=== PATIENT | male | born 1960 | race Caucasian/White ===

== ENCOUNTER 2018-02-11 07:19 | Emergency (ER) | payer OTHER, MEDICAID ==
[2018-02-11 07:26] VITALS: BP 149/107
[2018-02-11] MEDS ORDERED: LIDOCAINE 2% JELLY 5 ML TUBE ONE (07:42)
--- NOTE | 2018-02-11 07:44 | EDPHY ---
H & P Stated Complaint: 2 months overdue for indwelling cath change Time Seen by Provider: 02/11/18 07:28 HPI/ROS: CHIEF COMPLAINT: Here for suprapubic catheter change HISTORY OF PRESENT ILLNESS: 57-year-old male presents for a suprapubic catheter change. 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 The catheter was changed 2 months ago by his home health care nurse and it was fairly traumatic. For this reason, he decided to come to the emergency department for catheter change. The catheter is working well. No abdominal pain, recent illness or fever. 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 - Social History Smoking Status: Current every day smoker - Physical Exam Exam: General Appearance: Alert, pleasant Eyes: Pupils equal and round ENT, Mouth: Mucous membranes moist Neck: Normal inspection Respiratory: Normal respiratory rate Cardiovascular: Regular rate and rhythm Gastrointestinal: Abdomen is soft and nontender, catheter site is clean, without drainage or erythema Neurological: A&O, nonfocal, normal gait Skin: Warm and dry Extremities: Normal inspection Psychiatric: Mood and affect normal Constitutional: Initial Vital Signs Temperature (C) 37.0 C 02/11/18 07:23 Heart Rate 67 02/11/18 07:23 Respiratory Rate 16 02/11/18 07:23 Blood Pressure 149/107 H 02/11/18 07:23 O2 Sat (%) 97 02/11/18 07:23 O2 Delivery Mode Room Air Allergies/Adverse Reactions: amoxicillin [Amoxicillin] Allergy (Intermediate, Verified 07/12/16 10:13) RASH, THROAT TIGHTNESS ertapenem sodium [From Invanz] Allergy (Verified 07/12/16 10:13) Home Medications: Medication Instructions Recorded NK [No Known Home Meds] 07/12/16 Medical Decision Making ED Course/Re-evaluation: The suprapubic catheter was easily changed by the ED RN. Departure - Departure Disposition: Home, Routine, Self-Care Clinical Impression: Encounter for suprapubic catheter care Condition: Good Instructions: How to Care for Your Suprapubic Catheter (ED) Additional Instructions: Return with any concerns. Referrals: BLESSING VILLANUEVA [Other] - As per Instructions
== END 2018-02-11 08:19 | disposition home or self-care (01) ==
DX: Z46.6 Encounter for fitting and adjustment of urinary device (principal); F17.200 Nicotine dependence, unspecified, uncomplicated

== ENCOUNTER 2018-07-08 09:25 | Emergency (ER) | payer OTHER, MEDICAID ==
--- NOTE | 2018-07-08 09:41 | EDPHY ---
General Time Seen by Provider: 07/08/18 09:35 Narrative: CHIEF COMPLAINT: Need my suprapubic catheter exchange HISTORY OF PRESENT ILLNESS: Patient presents by private vehicle with complaints of needing his suprapubic catheter exchange. He has had a suprapubic urinary catheter in place for nearly 6 years due to complications from infection of the bladder. He states that he has typically had the catheter exchange every 2 months in the office or by home health nurse. Starting on Monday, when he was due to having exchange, he states that the catheter has become clogged. He has been passing some sediment through this. He knows that is clogged because this has happened many times. He has been passing some urine through the urethra and has no severe pain. He has some minimal discomfort from the catheter is asking that we exchanged. No fever. No flank pain. No nausea vomiting. No hematuria. No other associated complaints or modifying factors. REVIEW OF SYSTEMS: 10 systems were reviewed and negative with the exception of the elements mentioned in the history of present illness. PCP: Dr. Tish Colon SPECIALISTS: Dr. Abraahm Tai PAST MEDICAL HISTORY: [age] gangrene, hypertension PAST SURGICAL HISTORY: Suprapubic catheter placement 6 years ago SOCIAL HISTORY: Occasional smoker. Lives independently. Currently on disability FAMILY HISTORY: Noncontributory. EXAMINATION: Vitals: Triage VS reviewed General Appearance: Alert, no distress. Well appearing. Head: normocephalic, atraumatic Eyes: Pupils equal and round, no conjunctival pallor or injection Gastrointestinal: Abdomen is soft and nontender. There is a suprapubic catheter in place with no surrounding erythema or cellulitis. No skin breakdown. Skin: Warm and dry, no rash. No signs of infection. No pre-catheter skin changes. Extremities: Nontender, no pedal edema Psychiatric: Mood and affect normal DIFFERENTIAL DIAGNOSES: Including but not limited to catheter dysfunction, bladder dysfunction MDM: 9:35 a.m. Visit requesting exchange of his suprapubic catheter. The patient has had AC pubic catheter in place for nearly 6 years with well-established tract. The current catheter in place for 2 months. He is due for changes 2 months. He brought the catheter with him here. He has no abdominal pain, fever flank pain. He is passing urine through his urethra. His only request is that we exchanged the catheter. He is in no acute distress. He is resting comfortably otherwise. 10:30 a.m. Catheter has been exchanged urinalysis is pending. I have re-evaluated him. He feels much better. He is requesting that we write him a prescription for ciprofloxacin, as he feels that this is an early infection. I have written this prescription at his request with a pending urinalysis. He states that he has not been on antibiotics for nearly 9 months and ciprofloxacin is the drug of choice by his urologist. I have also ordered a urine culture. He is comfortable with this plan and discharged home in stable condition. ED precautions discussed. SUPERVISION: This patient was independently evaluated without direct involvement of or examination by the attending physician. CONSULTATION: None. Urology follow-up - History Smoking Status: Current every day smoker - Objective Vital Signs: Initial Vital Signs Temperature (C) 98.2 F 07/08/18 09:26 Heart Rate 76 07/08/18 09:26 Respiratory Rate 18 07/08/18 09:26 Blood Pressure 154/84 H 07/08/18 09:26 O2 Sat (%) 96 07/08/18 09:26 O2 Delivery Mode Room Air Allergies/Adverse Reactions: amoxicillin [Amoxicillin] Allergy (Intermediate, Verified 07/08/18 09:26) RASH, THROAT TIGHTNESS ertapenem sodium [From Invanz] Allergy (Intermediate, Verified 07/08/18 09:29) Home Medications: Medication Instructions Recorded Ciprofloxacin [Cipro] 500 mg PO BID #20 tab 07/08/18 Microbiology Results: MICROBIOLOGY 07/08/18 10:32 Urine,Suprapubic - Other Urine Culture - Preliminary Gram Neg Vikram Lactose [employer] Sander Proteus Species Medications Given: Discontinued Medications Lidocaine (Uroject Lidocaine 2% Jelly) 20 ml UR EDNOW ONE Stop: 07/08/18 09:55 Last Admin: 07/08/18 09:56 Dose: 20 ml Departure - Departure Disposition: Home, Routine, Self-Care Clinical Impression: Suprapubic catheter dysfunction Qualifiers: Encounter type: initial encounter Qualified Code(s): T83.010A - Breakdown ( mechanical) of cystostomy catheter, initial encounter UTI (urinary tract infection) Qualifiers: Urinary tract infection type: site unspecified Hematuria presence: with hematuria Qualified Code(s): N39.0 - Urinary tract infection, site not specified ; R31.9 - Hematuria, unspecified; R31.9 - Hematuria, unspecified Condition: Good Instructions: How to Care for Your Suprapubic Catheter (ED) Referrals: ERMELINDA HUANG [Other] - As per Instructions London Rosario MD [Medical Doctor] - As per Instructions Prescriptions: Ciprofloxacin [Cipro] 500 mg PO BID #20 tab
[2018-07-08] MEDS ORDERED: LIDOCAINE 2% JELLY 20 ML (UROJECT) ONE (09:54)
[2018-07-08] MEDS ORDERED: LIDOCAINE 2% JELLY 20 ML (UROJECT) UR ONE (09:54)
[2018-07-08 10:57] VITALS: BP 139/71
== END 2018-07-08 10:59 | disposition home or self-care (01) ==
PROC: 0T2BX0Z Change Drainage Device in Bladder, External Approach (ICD-10-PCS; principal; 2018-07-08)
DX: T83.010A Breakdown (mechanical) of cystostomy catheter, initial encounter (principal); N39.0 Urinary tract infection, site not specified; I10 Essential (primary) hypertension; F17.200 Nicotine dependence, unspecified, uncomplicated

== ENCOUNTER 2018-11-18 14:04 | Emergency (ER) | payer OTHER, MEDICAID ==
--- NOTE | 2018-11-18 16:11 | EDPHY ---
H & P Time Seen by Provider: 11/18/18 15:51 HPI/ROS: HPI History of suprapubic catheter. Concerned about infection. 58-year-old male by private vehicle. This patient has a history of 48 gangrene and associated surgery and placement of a suprapubic catheter 7 years ago. He reports that he has been living down on the [facility] for the last year taking care of his elderly in loss. He reports that he has had limited access to healthcare in this area. He reports that over the last year he has had multiple urinary tract infections associated with his suprapubic catheter. He reports that he has had it changed out every 2-3 months and has been on at least several different types of antibiotics. He reports most recently has been on ciprofloxacin and just finished a 2 week course several days ago. He presents to the emergency department complaining of foul-smelling urine and stating that he thinks he may be infected again. His urologist's here in [place] are Dr. Bacon and Tarik Bailon. He has not seen them yet. ROS: Constitutional: No fever, no chills. As above. Eyes: No discharge. No changes in vision. ENT: No sore throat. No nasal congestion or rhinorrhea. Respiratory: No cough. No shortness of breath. Cardiac: No chest pain, no palpitations. Gastrointestinal: No abdominal pain, no vomiting, no diarrhea. Genitourinary: No hematuria. No dysuria or increased frequency with urination. As above. Musculoskeletal: No back pain. No neck pain. No myalgias or arthralgias. Skin: No rashes. Neurological: No headache. No focal weakness or altered sensation. Past medical history: As above. Hypertension untreated. Social history: Currently here by himself. Nonsmoker. No alcohol. As above. Physical Exam: General Appearance: Alert, no distress. This patient is responding to questions appropriately and in full sentences. This patient appears well- hydrated and well-nourished. Eyes: Pupils equal and round no pallor or injection. No lid edema, erythema or injection. ENT, Mouth: Mucous membranes are moist. The pharyngeal tissues are unremarkable. No edema or swelling. No asymmetry suggestive of abscess. No erythema or exudates. Respiratory: There are no retractions, lungs are clear to auscultation with good air movement bilaterally. Cardiovascular: Regular rate and rhythm. No murmur. Gastrointestinal: Abdomen is soft and nontender, no masses, bowel sounds normal. No focal tenderness at McBurney's point. No Matute sign. Suprapubic catheter insertion site is clean dry and intact. There is a small ring of erythema directly around the opening. Otherwise no spreading erythema or edema. No crepitus. No significant tenderness on palpation. No purulence. Neurological: Motor sensory function is grossly intact. Cranial nerves are normal. Gait is normal. Skin: Warm and dry, no rashes. Musculoskeletal: Neck is supple and nontender. Extremities are symmetrical. All joints range without pain or impingement. Psychiatric: No agitation. No depression. Database: EKG: Imaging: Procedures: Emergency department course: Triage vital signs reviewed. He is moderately hypertensive. Vital signs are otherwise normal. He is afebrile. Urine obtained. 4:50 p.m., I spoke with on-call infectious disease specialist Dr. Phani Bacon. This patient's case was discussed in detail with him. I reviewed the patient's urinalysis results. Dr. Bacon advises against starting antibiotics at this time. I agree. The patient does not look sick. His vital signs are normal. He has been afebrile. Plan will be to have him follow up with his urologist, either Dr. Bailon or Dr. Rosario early this week for re-evaluation. By that time his urine cultures result will be available and antibiotic decisions as well as consideration of replacing his suprapubic catheter can be discussed. 5:30 p.m., the patient was re-evaluated, he is resting comfortably at this time. His vital signs remained normal. He has remained afebrile. He denies any complaints. I discussed my conversation with Dr. Bacon and recommendations to withhold antibiotics at this time. The patient stated that he could easily follow up with his urologist early this week for re-evaluation. He feels comfortable going home. I feel he is safe for discharge. Return to emergency department precautions were reviewed with him. All of his questions were answered. He was discharged from the emergency department in good condition. Differential Diagnosis: The differential diagnosis on this patient includes but is not limited to urinary tract infection, history of suprapubic catheter. This represents a partial list of diagnoses considered. These considerations are based on history , physical exam, past history, reassessment and diagnostic testing. Smoking Status: Current some day smoker Constitutional: Initial Vital Signs Temperature (C) 36.5 C 11/18/18 14:17 Heart Rate 63 11/18/18 14:17 Respiratory Rate 16 11/18/18 14:17 Blood Pressure 152/88 H 11/18/18 14:17 O2 Sat (%) 97 11/18/18 14:17 O2 Delivery Mode Room Air Allergies/Adverse Reactions: amoxicillin [Amoxicillin] Allergy (Intermediate, Verified 11/18/18 14:16) RASH, THROAT TIGHTNESS ertapenem sodium [From Invanz] Allergy (Intermediate, Verified 11/18/18 14:16) Medical Decision Making - Data Points Laboratory Results: 11/18/18 14:20 Urine Color YELLOW Urine Appearance TURBID Urine pH 9.0 H (5.0-7.5) Ur Specific [place] 1.014 (1.002-1.030) Urine Protein 1+ H (NEGATIVE) Urine Ketones NEGATIVE (NEGATIVE) Urine Blood NEGATIVE (NEGATIVE) Urine Nitrate POSITIVE H (NEGATIVE) Urine Bilirubin NEGATIVE (NEGATIVE) Urine Urobilinogen NEGATIVE EU EU (0.2-1.0) Ur Leukocyte Esterase TRACE H (NEGATIVE) Urine RBC NONE SEEN /hpf /hpf (0-3) Urine WBC 0-1 /hpf /hpf (0-3) Ur Epithelial Cells NONE SEEN /lpf /lpf (NONE-1+) Amorphous Sediment PRESENT /hpf /hpf (NONE-1+) Urine Bacteria TRACE /hpf H /hpf (NONE SEEN) Urine Mucus TRACE /lpf /lpf (NONE-1+) Urine Glucose NEGATIVE (NEGATIVE) Departure - Departure Disposition: Home, Routine, Self-Care Clinical Impression: Suprapubic catheter Condition: Good Instructions: How to Care for Your Suprapubic Catheter (ED) Additional Instructions: Read and follow provided instructions. Follow-up with your urologist as discussed early this week for re-evaluation. Your urine culture will be available at that time and can be reviewed with your urologist. Return to the emergency department for fever, back pain, abdominal pain, vomiting, pus from your suprapubic catheter insertion site or other serious concerns. Referrals: London Rosario MD [Medical Doctor] - As per Instructions Tarik Bailon MD [Medical Doctor] - As per Instructions
[2018-11-18 17:43] VITALS: BP 126/73
== END 2018-11-18 17:43 | disposition home or self-care (01) ==
DX: Z96.0 Presence of urogenital implants (principal)